=== PATIENT | male | born 1965 | race Caucasian/White ===

== ENCOUNTER 2021-01-22 02:04 | Emergency (ER) | payer MEDICAID ==
[~2021-01-22] VITALS: Ht 172.7 cm; Wt 79.8 kg
[~2021-01-22 02:04] MED LIST: ASPI81TA45 PO; BUSP10TA PO; CEFD300C37 PO; ERGO500017 PO; METR500T PO; OMEG-14 PO; OXYC5TAB98 PO; PRAS10TA4 PO; QUET50TA PO; SIMV20TA PO
[2021-01-22] MEDS ORDERED: ASPIRIN 81 MG TABLET CHEW PO ONE (02:30)
[2021-01-22 03:09] LABS: ALANINE AMINOTRANSFERASE 32 U/L (12-78); ALBUMIN 3.4 g/dL (3.4-5.0); ANION GAP 8 mmol/L (5-15); CALCIUM 8.5 mg/dL (8.5-10.1); CHLORIDE 108 mmol/L (98-107)
[2021-01-22 03:14] LABS: ALKALINE PHOSPHATASE 121 U/L (45-117); BILIRUBIN,TOTAL 0.2 mg/dL (0.2-1.0); CREATININE 0.75 mg/dL (0.7-1.3); MEAN CORPUSCULAR HEMOGLOBIN 31.5 pg (27.5-34.5); MEAN CORPUSCULAR HGB CONC 33.9 g/dL (33.2-36.2); MEAN PLATELET VOLUME 8.8 fL (7.4-10.4); PLATELET COUNT 175 x10^3/uL (130-400); RED BLOOD COUNT 4.63 x10^6/uL (4.38-5.82); RED CELL DISTRIBUTION WIDTH 13.6 % (9.4-14.8); TOTAL PROTEIN 7.2 g/dL (6.4-8.2); TROPONIN I < 0.015 ng/mL (0.000-0.045)
[2021-01-22 03:25] LABS: MD YES
[2021-01-22 03:53] LABS: <RBC MORPHOLOGY> NORMAL; BASOS#(MANUAL) 0.08 x10^3/uL (0-0.1); BASOS% (MANUAL) 1 % (0-1); EOS#(MANUAL) 0.15 x10^3/uL (0.0-0.4); EOS% (MANUAL) 2 % (1-7); LYMPH#(MANUAL) 1.67 x10^3/uL (1-3.4); LYMPHS% (MANUAL) 22 % (22-44); MONOS#(MANUAL) 0.38 x10^3/uL (0.3-2.7); MONOS% (MANUAL) 5 % (2-9); REACTIVE LYMPHS # (MANUAL) 0.15 x10^3/uL (0-0); REACTIVE LYMPHS % (MANUAL) 2 % (0-0); SEG#(MANUAL) 5.17 x10^3/uL (1.8-6.8); SEGS% (MANUAL) 68 % (42-75)
[2021-01-22 03:54] LABS: <PLATELET ESTIMATE> ADEQUATE; LARGE PLATELETS 1+
[2021-01-22 05:15] VITALS: BP 98/67
[2021-01-22 06:04] LABS: TROPONIN I < 0.015 ng/mL (0.000-0.045)
== END 2021-01-22 06:40 | disposition home or self-care (01) ==
LOC: ED 02:54
DX: R07.89 Other chest pain (principal); R06.02 Shortness of breath; I10 Essential (primary) hypertension; I25.2 Old myocardial infarction
CPT/HCPCS: 36415; 71045; 80053; 84484; 85025; 93005; 99285

== ENCOUNTER 2021-06-10 03:33 | Emergency (ER) | payer MEDICAID ==
[~2021-06-10] VITALS: Ht 175.3 cm; Wt 78.6 kg
[~2021-06-10 03:33] MED LIST changes: -QUET50TA PO; +QUET50TA3 PO
[2021-06-10] MEDS ORDERED: HYDROcodone/APAP 5/325 TABLET ONE (04:05)
[2021-06-10 04:15] VITALS: BP 111/79
[2021-06-10] MEDS ORDERED: HYDROcodone/APAP 5/325 TABLET PO ONE (04:30)
== END 2021-06-10 04:27 | disposition home or self-care (01) ==
LOC: ED 04:00
DX: K02.9 Dental caries, unspecified (principal); R51.9 Headache, unspecified; F17.210 Nicotine dependence, cigarettes, uncomplicated; Z72.9 Problem related to lifestyle, unspecified; I25.2 Old myocardial infarction; I10 Essential (primary) hypertension
CPT/HCPCS: 99283